=== PATIENT | male | born 1970 ===

== ENCOUNTER 2022-10-07 06:35 | Day surgery (SDC) | payer OTHER ==
[~2022-10-07] VITALS: Ht 167.6 cm; Wt 70.3 kg
== END 2022-10-07 12:25 | disposition home or self-care (01) ==
LOC: CIR.AMB 06:35
PROVIDERS: ATTEND Orthopaedic Surgery Hand Surgery
DX: M72.0 Palmar fascial fibromatosis [Dupuytren] (principal); Z20.822 Contact with and (suspected) exposure to COVID-19; E11.9 Type 2 diabetes mellitus without complications; E78.00 Pure hypercholesterolemia, unspecified; I10 Essential (primary) hypertension